=== PATIENT | male | born 1995 | race Two or more races ===

== ENCOUNTER 2017-08-07 11:03 | Emergency (ER) | payer SELFPAY ==
[~2017-08-07] VITALS: Ht 175.3 cm; Wt 60.0 kg
[2017-08-07 13:30] VITALS: BP 126/86
[2017-08-07] MEDS ORDERED: IBUPROFEN 600MG TABLET PO ONE (13:30)
== END 2017-08-07 13:55 | disposition home or self-care (01) ==
LOC: ER 11:16
DX: S09.93XA Unspecified injury of face, initial encounter (principal); Y04.0XXA Assault by unarmed brawl or fight, initial encounter; Y93.89 Activity, other specified; Y92.89 Other specified places as the place of occurrence of the external cause; Y99.8 Other external cause status
CPT/HCPCS: 70450; 70486; 99284